=== PATIENT | female | born 1955 | race Caucasian/White ===

== ENCOUNTER 2016-07-08 15:56 | Outpatient (RCR) | payer BC ==
--- OUTSIDE RECORDS SUMMARY | 2016-05-28 09:24 | XMS REPORT | Continuity of Care Document ---
Author Author [facility] Organization [facility] Address Unknown Phone Unavailable Care Team Providers Care Drafter Directional Survey Name Role Phone TOÑO DYER MD PCP Insurance Providers Payer Name Policy Number Subscriber Name Relationship [facility] [id number] Allison Pérez 01 Advance Directives Directive Response Recorded Date/Time Advance Directives No 01/26/12 1:23pm Organ Donor Yes 01/26/12 1:23pm Problems No known problems or medical conditions. Medications Medication Dose Route Sig Days/Qty Instructions Order Date Discontinued Date Status Paroxetine HCl 20 Mg PO DAILY pt.states takes paxil 20 mg about 3 x's a week. 12/16/10 Active Metoprolol Succinate 25 Mg PO DAILY 12/18/10 Active Enalapril Maleate 2.5 Mg PO DAILY 12/18/10 01/26/12 Discontinued Pantoprazole Sod 40 Mg PO DAILY 12/18/10 Active Aspirin 325 Mg PO DAILY 12/18/10 01/26/12 Discontinued Prasugrel Hydrochloride 10 Mg PO DAILY 12/18/10 Active Atorvastatin Calcium 80 Mg PO BEDTIME 12/18/10 Active Fish Oil 3,000 Mg PO DAILY 12/18/10 Active Aspirin 81 Mg PO DAILY 01/25/12 Active Social History Social History Problem Response Recorded Date/Time Recent Foreign Travel No 05/29/2014 9:12am Hospital Discharge Instructions No hospital discharge instructions. Plan of Care No plan of care. Functional Status No functional status results. Allergies, Adverse Reactions, Alerts Allergen Type Severity Reaction Status Last Updated No Known Drug Allergies Active 12/16/10 Immunizations No immunization records. Vital Signs No known vital signs results. Results No known relevant diagnostic tests, laboratory data and/or discharge summary. Procedures No known history of procedures. Encounters Encounter Location Date/Time Registered Clinic [facility] 05/29/14 9:12pm
[~2016-07-08 15:56] MED LIST: ACHYD1T PO; ASP325TEC PO; ASP81TEC PO; ASPI-892 PO; ATOR20TA66 PO; ATOR80TA PO; ENAL2.5T PO; HYDR-753 PO; IRON150C6 PO; MTP25TSR PO; MULT-35 PO; NEXIUM 22.3 MG PO; NF-ESOM40C PO; OMEP20CA12 PO; OMG1KC PO; ONDN4T PO; PARO10TA81 PO; PNT40TEC PO; PRAS10TA6 PO; PRX20T PO; WARF2.5T56 PO
== END 2016-07-22 10:07 | disposition home or self-care (01) ==
PROVIDERS: ATTEND Nurse Practitioner Family
DX: M75.02 Adhesive capsulitis of left shoulder (principal)

== ENCOUNTER 2017-06-17 15:05 | Outpatient (RCR) | payer BC ==
[2017-06-07] MEDS: IRON SUCROSE 200 MG/NS 100 ML (IVPB) IV SCH ×2 (14:56)
[2017-06-07 14:59] VITALS: BP 130/68
[2017-06-07 15:14] VITALS: BP 130/68
[2017-06-09] MEDS: IRON SUCROSE 200 MG/NS 100 ML (IVPB) IV SCH ×2 (15:12)
[2017-06-09 16:18] VITALS: BP 131/67
[2017-06-13 15:00] VITALS: BP 127/76
[2017-06-13] MEDS: IRON SUCROSE 200 MG/NS 100 ML (IVPB) IV SCH ×2 (15:05)
[2017-06-15 14:55] VITALS: BP 137/71
[2017-06-15] MEDS: IRON SUCROSE 200 MG/NS 100 ML (IVPB) IV SCH ×2 (15:05)
[~2017-06-17] VITALS: Ht 162.6 cm; Wt 79.5 kg
[2017-06-17] MEDS: IRON SUCROSE 200 MG/NS 100 ML (IVPB) IV SCH ×2 (15:20)
[2017-06-17 15:27] VITALS: BP 127/68
[2017-06-17 15:37] VITALS: BP 127/68
== END 2017-09-04 | disposition home or self-care (01) ==
LOC: SDC 15:05
PROVIDERS: ATTEND Internal Medicine
DX: D50.9 Iron deficiency anemia, unspecified (principal)
CPT/HCPCS: 96365

== ENCOUNTER → 2017-07-20 | Outpatient (CLI) | payer BC | LOC: CARD 14:03 | PROVIDERS: ATTEND Internal Medicine Cardiovascular Disease | DX: I25.10 Atherosclerotic heart disease of native coronary artery without angina pectoris (principal); I10 Essential (primary) hypertension; E78.2 Mixed hyperlipidemia; R06.02 Shortness of breath | CPT/HCPCS: 93306 ==

== ENCOUNTER → 2017-07-25 | Outpatient (CLI) | payer BC ==
[~2017-07-25] VITALS: Ht 162.6 cm; Wt 81.6 kg
[~2017-07-25] MED LIST changes: +CATHETER FLUSH 10 ML SYR IV PRN
[2017-07-25 09:36] VITALS: BP 123/76
--- NOTE | 2017-07-25 15:58 | STRESS TEST ---
DATE OF SERVICE: 07/25/2017 EXERCISE MYOVIEW STRESS TEST REPORT Baseline heart rate is 57. Baseline blood pressure 135/76. Baseline EKG is sinus rhythm with no ischemic changes. In summary, the patient was injected with 10.69 mCi of technetium-99 Myoview and the resting images were obtained. Then, the patient started exercising with a baseline heart rate, blood pressure and EKG mentioned above. At peak stress level, patient was injected with 33.0 mCi of technetium-99 Myoview, was able to exercise for a total of 8 minutes on standard Ethan protocol EKG showing minimal nondiagnostic changes with [address] depression in lead [address] depression in V4 and V5. Blood pressure was 162/80. During recovery, heart rate and blood pressure returned to baseline. EKG returned to baseline. The resting and stress images were reviewed and compared in the short axis, horizontal long axis, and vertical long axis views. Review of the images showed good radiotracer uptake with no significant ischemia or infarction. SSS is 1, SDS 1, TID value 0.89. On the gated images, the left ventricle appeared to be normal size with normal contractility. Calculated ejection fraction 68%. CONCLUSION: 1. Good exercise tolerance a total of 8 minutes on standard Ethan protocol, total of 9.7 METS achieving 90% of maximum expected heart rate. 2. Appropriate heart rate and blood pressure response to exercise returned to baseline during recovery. 3. Minimal nondiagnostic EKG changes with exercise returned to baseline during recovery. 4. No significant ischemia or infarction on SPECT images. 5. Normal left ventricular size with normal contractility. Calculated ejection fraction 68%. Job ID: [id number] DocumentID: [id number] Dictated Date: 07/25/2017 12:37:18 Desulfurizer Hand Date: 07/25/2017 15:57:47 Dictated By: BARRETT GUTIÉRREZ MD
== END ==
LOC: CARD 08:01
PROVIDERS: ATTEND Internal Medicine Cardiovascular Disease
DX: I25.10 Atherosclerotic heart disease of native coronary artery without angina pectoris (principal); I10 Essential (primary) hypertension; E78.2 Mixed hyperlipidemia; R06.02 Shortness of breath
CPT/HCPCS: 78452; 93017

== ENCOUNTER → 2018-06-08 | Outpatient (CLI) | payer BC ==
[~2018-06-08] MED LIST changes: -CATHETER FLUSH 10 ML SYR IV PRN; +HYDR-4196 PO; -HYDR-753 PO
--- NOTE | 2018-06-08 18:14 | Diagnostic Imaging Report ---
INDICATION: Screening. The current study was also evaluated with a Computer Aided Detection (CAD) system. No prior examinations are available for comparison. FINDINGS: There are scattered fibroglandular densities bilaterally. There are few benign type calcifications. There are benign-appearing nodular densities in the axilla bilaterally. There is no dominant mass, spiculated lesion or suspicious calcification identified. Skin nipples and axilla are unremarkable. IMPRESSION: Benign. ACR BI-RADS Category 2: Benign findings. Result letter will be mailed to the patient. Note: At least 10% of breast cancer is not imaged by mammography. Dictated by: Dictated on workstation # [id number]
== END ==
LOC: RAD 09:47
PROVIDERS: ATTEND Internal Medicine
DX: Z12.31 Encounter for screening mammogram for malignant neoplasm of breast (principal)
CPT/HCPCS: 77067

== ENCOUNTER 2018-12-07 05:41 | Outpatient (CLI) | payer BC ==
[~2018-12-07] VITALS: Ht 162.6 cm; Wt 81.6 kg
[2018-12-07] MEDS ORDERED: MULT-351 PO (14:33)
[2018-12-07] MEDS ORDERED: ATOR40TA70 PO (14:33)
[2018-12-07] MEDS ORDERED: METO-387 PO (14:33)
== END 2018-12-07 14:50 ==
LOC: PREOP 05:41
PROVIDERS: ATTEND Surgery
DX: Z01.818 Encounter for other preprocedural examination (principal)

== ENCOUNTER 2018-12-11 10:16 | Day surgery (SDC) | payer BC ==
[~2018-12-11] VITALS: Ht 162.6 cm; Wt 81.6 kg
[~2018-12-11 10:16] MED LIST changes: +ATOR40TA70 PO; +LACTATED RINGERS 1,000 ML IV ONE; +METO-387 PO; +MULT-351 PO
[2018-12-11] MEDS ORDERED: HURRICAINE EXT TUBE (BENZOCAINE) ONE (10:32)
[2018-12-11] MEDS ORDERED: PROPOFOL INJECTION 50 ML IV ONE (10:40)
[2018-12-11] MEDS ORDERED: MIDAZOLAM 2 MG/2 ML (VERSED) VIAL ONE (10:41)
--- NOTE | 2018-12-11 10:42 | Progress Note-Pre Operative ---
Pre-Operative Progress Note H&P Reviewed The H&P was reviewed, patient examined and no changes noted. Time Seen by Provider: 10:40 Date H&P Reviewed: Dec 11, 2018 Time H&P Reviewed: 10:41 Pre-Operative Diagnosis: Chronic Gastritis, Anemia, Family hx colon ca, Scr eening MAIRA Richter DO Dec 11, 2018 10:42
[2018-12-11] MEDS ORDERED: LACTATED RINGERS 1,000 ML IV STA (10:46)
[2018-12-11 10:55] VITALS: BP 123/72
[2018-12-11] MEDS ORDERED: ceFAZolin 2 GM/50 ML NS 50 ML IV ONE (11:00)
[2018-12-11] MEDS ORDERED: HURRICAINE EXT TUBE (BENZOCAINE) XX PRN (11:00)
[2018-12-11] MEDS ORDERED: proPOfol 200 MG/20 ML (DIPRIVAN) VIAL IV ONE (11:17)
--- NOTE | 2018-12-11 11:44 | Progress Note-Post Operative ---
Post-Operative Progess Note Surgeon (s)/Laborer Powerhouse (s) Surgeon MAIRA LOUIE DO Laborer Powerhouse: none Pre-Operative Diagnosis Chronic Gastritis, Anemia, Family hx colon ca, Screening colon Post-Operative Diagnosis Chronic Gastritis Gastric Polyps Hiatal hernia Esophagitis Sigmoid colon polyp internal hemorrhoids Procedure & Operative Findings Date of Procedure 12/11/18 Procedure Performed/Findings EGD with snare polypectomy EGD with bx Colon with hot bx Anesthesia Type IV sedation by CHOKER SETTER Estimated Blood Loss Estimated blood loss (mL): scant Specimens/Packing Specimens Removed antral bx Gastric polyp GE jxn bx Sigmoid colon polyp MAIRA LOUIE DO Dec 11, 2018 11:44
--- NOTE | 2018-12-11 11:46 | Endoscopy Discharge Instruct ---
Endo Procedure/Findings Findings 1.: Gastritis, Other Findings (Gastric polyps-inflamed) 2.: Hiatal Hernia 3.: Polyp 4.: Internal Hemorrhoids Discharge Instructions - Activity: You might feel a little sleepy until tomorrow. This is due to the medicine you received to relax you. Until tomorrow, you should: NOT drive a car, operate machinery or power tools. NOT drink any alcoholic beverages. NOT make any important decisions or sign importortant papers. Do not return to work until tomorrow, unless otherwise instructed. Resume previous activities tomorrow. Diet: Start by taking liquids. If you tolerate liquids, advance to solid food. make an appointment for one week Instructions: 1.: Colonscopy in 5 years, EGD in 1 year Notify Physician - If you experience excessive bleeding, unusual abdominal pain, fever, or chest pain, contact your doctor immediately. Follow-Up: - I have received and understand the above instructions and will call my doctor if I have any further questions. Patient Signature Date Nurse Signature Other (Relationship) MAIRA LOUIE DO Dec 11, 2018 11:46
[2018-12-11 11:50] VITALS: BP 130/67
[2018-12-11 12:25] VITALS: BP 128/76
[2018-12-11 12:34] VITALS: BP 128/76
--- NOTE | 2018-12-11 14:47 | Anesthesia-General Post-Op ---
MAC Patient Condition Mental Status/LOC: Same as Preop Cardiovascular: Satisfactory Nausea/Vomiting: Absent Respiratory: Satisfactory Pain: Controlled Complications: Absent Post Op Complications Complications None Follow Up Care/Instructions Patient Instructions None needed. Anesthesiology Discharge Order Discharge Order Patient is doing well, no complaints, stable vital signs, no apparent adverse anesthesia problems. No complications reported per nursing. TASIA CAMPUZANO CRNA Dec 11, 2018 14:47
--- NOTE | 2018-12-11 20:53 | OPERATIVE REPORT ---
DATE OF SERVICE: 12/11/2018 PREOPERATIVE DIAGNOSES: 1. Chronic gastritis. 2. Anemia. 3. Family history of colon cancer. 4. Screening colonoscopy. POSTOPERATIVE DIAGNOSES: 1. Chronic gastritis. 2. Gastric polyps. 3. Hiatal hernia. 4. Esophagitis. 5. Sigmoid colon polyp. 6. Internal hemorrhoids. PROCEDURES PERFORMED: 1. Esophagogastroduodenoscopy with snare polypectomy. 2. Esophagogastroduodenoscopy with biopsy. 3. Colonoscopy with hot biopsy. SURGEON: Abdoulaye Lemon DO. STREET INSPECTOR: None. ANESTHESIA: IV sedation by TONE REGULATOR. SPECIMENS: 1. Antral biopsy and then 2 gastric polyps. 2. GE junction biopsy. 3. Sigmoid colon polyp taken in 2 pieces. BLOOD LOSS: Scant. FLUIDS: Per Anesthesia. POSTOPERATIVE CONDITION: Stable. INDICATION FOR PROCEDURE: The patient is a 63-year-old female, who has been having some chronic gastritis and anemia, had a family history of colon cancer. Never had a colonoscopy and needs one for screening. FINDINGS: The patient had some chronic gastritis. She also had multiple large gastric polyps. Two of them looked inflamed. These were removed. She also had noted a hiatal hernia and some mild esophagitis. In the colon, she had a sigmoid colon polyp and some internal hemorrhoids. PROCEDURE NOTE: After informed consent was obtained, the patient was brought to the endoscopy suite and placed in the left lateral decubitus position. She was administered IV sedation by the TONE REGULATOR, who then monitored her vitals the entire time, heart rate, blood pressure and pulse ox and the scope was inserted down the mouth through the esophagus into the stomach. Upon entering the stomach, there was some gastritis, I took a picture of this, pushed in the duodenum, first and second portion of duodenum looked fine. Pulled back into the antrum, did a biopsy of the antrum and then looking in the body of stomach, saw a large amount of gastric polyps. Two of them were very large and inflamed, elected to remove these with snare polypectomies and did a snare polypectomy. I pulled back into the GE junction, did a biopsy of the GE junction and then put the scope back in. I used a [place] Net to grasp the 2 polyps and then pulled the scope up the esophagus and out the mouth after suctioning out the air in the stomach. Switched gloves and switched cameras and went down below to start the colonoscopy. I pushed the scope in, pushed all the way to 140 cm, able to get to the cecum and noted the appendiceal orifice as well as the ileocecal valve and then slowly withdrew the scope insufflating to look circumferentially at the mart looking at the cecum, up the ascending colon to the hepatic flexure, then down the transverse colon, splenic flexure, into the descending colon and down the sigmoid. In the sigmoid, saw a polyp, took a picture of this and then did a hot biopsy and able to remove it completely in 2 bites and then pulled down into the rectum, retroflexed in the rectal vault, saw some minimal internal hemorrhoids, took a picture of this and then removed the scope. The patient tolerated the procedure and she was recovered in endoscopy suite. Job ID: [id number] DocumentID: [id number] Dictated Date: 12/11/2018 14:53:46 Rivet Hammer Machine Operator Date: 12/11/2018 20:53:11 Dictated By: ABDOULAYE LEMON DO
== END 2018-12-11 12:30 | disposition home or self-care (01) ==
LOC: ENDO 10:16
PROVIDERS: ATTEND Surgery
DX: Z12.11 Encounter for screening for malignant neoplasm of colon (principal); K29.50 Unspecified chronic gastritis without bleeding; K31.7 Polyp of stomach and duodenum; K44.9 Diaphragmatic hernia without obstruction or gangrene; K21.0 Gastro-esophageal reflux disease with esophagitis; K63.5 Polyp of colon; K64.8 Other hemorrhoids; D64.9 Anemia, unspecified; Z80.0 Family history of malignant neoplasm of digestive organs; Z82.49 Family history of ischemic heart disease and other diseases of the circulatory system; I10 Essential (primary) hypertension; E78.2 Mixed hyperlipidemia; I25.10 Atherosclerotic heart disease of native coronary artery without angina pectoris; F41.9 Anxiety disorder, unspecified; I65.23 Occlusion and stenosis of bilateral carotid arteries; Z95.5 Presence of coronary angioplasty implant and graft; Z79.899 Other long term (current) drug therapy; Z96.651 Presence of right artificial knee joint

== ENCOUNTER 2019-05-18 11:38 | Outpatient (RCR) | payer BC ==
[2019-05-07 10:10] VITALS: BP 129/54
[2019-05-07] MEDS: IRON SUCROSE 200 MG/10 ML (VENOFER) VIAL IV SCH (10:30)
[2019-05-11] MEDS: IRON SUCROSE 200 MG/10 ML (VENOFER) VIAL IV SCH ×2 (11:10→11:11)
[2019-05-11 11:16] VITALS: BP 131/76
[2019-05-14 11:18] VITALS: BP 120/59
[2019-05-14] MEDS: IRON SUCROSE 200 MG/10 ML (VENOFER) VIAL IV SCH (11:31)
[2019-05-16 11:28] VITALS: BP 142/77
[2019-05-16] MEDS: IRON SUCROSE 200 MG/10 ML (VENOFER) VIAL IV SCH (11:43)
[~2019-05-18] VITALS: Ht 162.6 cm; Wt 79.5 kg
[~2019-05-18 11:38] MED LIST changes: +IRON SUCROSE 200 MG/10 ML (VENOFER) VIAL IV ONE; -LACTATED RINGERS 1,000 ML IV ONE; +OMEP20CA13 PO
[2019-05-18] MEDS: IRON SUCROSE 200 MG/10 ML (VENOFER) VIAL IV SCH (11:52)
[2019-05-18 13:51] VITALS: BP 128/73
== END 2019-05-18 12:24 | disposition home or self-care (01) ==
LOC: SDC 11:38
PROVIDERS: ATTEND Internal Medicine
DX: D50.9 Iron deficiency anemia, unspecified (principal)
CPT/HCPCS: 96365

== ENCOUNTER → 2020-02-27 | Outpatient (CLI) | payer MEDICARE, OTHER ==
[~2020-02-27] VITALS: Ht 162 cm; Wt 77.0 kg
[~2020-02-27] MED LIST changes: +CATHETER FLUSH 10 ML SYR IV PRN; -IRON SUCROSE 200 MG/10 ML (VENOFER) VIAL IV ONE; -METO-387 PO; -OMEP20CA13 PO; +OMEP20CA18 PO; +REGADENOSON 0.4 MG/5 ML SYR (LEXISCAN) IV ONE
[2020-02-27 09:24] VITALS: BP 127/77
--- NOTE | 2020-02-27 13:12 | Cardiology Stress Test Report ---
Stress Test Report Date of Procedure/Referring: Date of Procedure: Feb 27, 2020 PCP Barrett Peralta MD Admitting Physician Sivan Whittington DO Indications: Coronary artery disease Baseline Heart Rate: 51 Baseline Blood Pressure: Blood Pressure Systolic: 127 Blood Pressure Diastolic: 77 Baseline Vitals Vital Signs Date Time Temp Pulse Resp B/P (MAP) Pulse Ox O2 Delivery O2 Flow Rate FiO2 02/27/20 09:24 51 127/77 (94) 98 Baseline EKG: Baseline EKG: normal sinus rhythm Summary After explaining the procedure to the patient, she signed a consent and then brought to the stress nuclear laboratory. Patient received 0.4 mg Lexiscan for stress test, ECG, heart rate and blood pressure were monitored continuously. Resting and stress dose of radio tracer were injected, imaging was acquired and reviewed in short axis, horizontal long axis and vertical long axis views. TID: 1.06 SSS: 2 SDS: 2 EF: 65 1. Patient tolerated Lexiscan well 2. Breast attenuation with mild decrease uptake at the anteroapical segment with mild reversibility, no significant ischemia or infarction on SPECT images 3. Normal LV size, EF 65 percent BARRETT PERALTA MD Feb 27, 2020 13:12
== END ==
LOC: CARD 07:47
PROVIDERS: ATTEND Internal Medicine Cardiovascular Disease
DX: I11.9 Hypertensive heart disease without heart failure (principal); I25.10 Atherosclerotic heart disease of native coronary artery without angina pectoris; K21.9 Gastro-esophageal reflux disease without esophagitis; E78.2 Mixed hyperlipidemia; N64.89 Other specified disorders of breast
CPT/HCPCS: 78452; 93017; A9502

== ENCOUNTER 2020-08-27 09:00 | Day surgery (SDC) | payer MEDICARE, OTHER ==
[~2020-08-27] VITALS: Ht 162 cm; Wt 78.0 kg
[2020-08-27] VITALS (11 sets, daily range): BP systolic 112–141; BP diastolic 63–81
[2020-08-27] MEDS: NS IV 1000 ML 1,000 ML IV SCH ×2 (07:19→15:26)
--- NOTE | 2020-08-27 07:19 | Cardiac Procedure Note-CS/ASA ---
Pre-Procedure Note Pre-Op Procedure Note H&P Reviewed The H&P was reviewed, patient examined and no changes noted. Date H&P Reviewed: Aug 27, 2020 Time H&P Reviewed: 07:19 Conscious Sedation Pre-Proced Time 07:19 ASA Score 3 For ASA 3 and 4: Consider anesthesia and medical clearance. Also, for patients with a history of failed moderate sedation consider anesthesia. Airway Lungs Heart ASA score ASA 1: a normal healthy patient ASA 2: a patient with a mild systemic disease (mid diabetes, controlled hypertension, obesity x ASA 3: a patient with a severe systemic disease that limits activity (angina, COPD, prior Myocardial infarction) ASA 4: a patient with an incapacitating disease that is a constant threat to life (CHF, renal failure) ASA 5: a moribund patient not expected to survive 24 hrs. (ruptured aneurysm) ASA 6: a declared brain- patient whose organs are being harvested. For emergent operations, add the letter E after the classification Mallampati Classification Grade 3 Sedation Plan Analgesia, Amnesia, Plan communicated to team members, Discussed options with patient/fam, Discussed risks with patient/fam The patient is an appropriate candidate to undergo the planned procedure, sedation, and anesthesia. The patient immediately re-assessed prior to indication. BARRETT GUTIÉRREZ MD Aug 27, 2020 7:19 am
[2020-08-27 07:26] LABS: BILIRUBIN,URINE NEGATIVE (NEGATIVE); CLARITY,URINE SL CLOUDY; COLOR,URINE YELLOW; GLUCOSE, URINE (UA) NEGATIVE (NEGATIVE); KETONES,URINE NEGATIVE (NEGATIVE); LEUKOCYTE ESTERASE ,URINE TRACE (NEGATIVE); NITRITE,URINE NEGATIVE (NEGATIVE); PROTEIN,URINE NEGATIVE (NEGATIVE)
[2020-08-27 07:27] LABS: HEMOGLOBIN 10.6 g/dL (11.5-16.0); MEAN PLATELET VOLUME 9.5 fL (9.0-12.2); WHITE BLOOD COUNT 4.9 10^3/uL (4.3-11.0)
--- NOTE | 2020-08-27 07:31 | Diagnostic Imaging Report ---
CHEST 1 VIEW, AP/PA ONLY Indication: Coronary artery disease, abnormal stress test. Comparison: 08/27/2014 Findings: No focal airspace disease in the visualized lungs. Please note that the posterior lower lobes are poorly evaluated by portable radiography. No pleural effusion or pneumothorax. Normal cardiomediastinal silhouette. Impression: 1. No acute cardiopulmonary process by portable radiography. Dictated by: Dictated on workstation # [id number]
[2020-08-27 07:39] LABS: BACTERIA,URINE TRACE /HPF; RBC,URINE RARE /HPF; SQUAMOUS EPITHELIAL CELL,UR RARE /HPF
[2020-08-27 07:56] LABS: ALBUMIN 4.1 GM/DL (3.2-4.5)
[2020-08-27 07:57] LABS: CALCIUM 8.9 MG/DL (8.5-10.1)
[2020-08-27 07:58] LABS: TOTAL PROTEIN 7.5 GM/DL (6.4-8.2)
[2020-08-27 08:00] LABS: BILIRUBIN,TOTAL 0.4 MG/DL (0.1-1.0)
[2020-08-27 08:02] LABS: CREATININE SERUM 1.1 MG/DL (0.60-1.30)
[2020-08-27 08:03] LABS: PROTHROMBIN TIME PATIENT 13.1 SEC (12.2-14.7)
[~2020-08-27 09:00] MED LIST changes: +ASPI-999 PO; -CATHETER FLUSH 10 ML SYR IV PRN; +HEParin (CATH LAB) 2,000 ML IV ONE; +LIDOCAINE 1% INJ 20 ML 20 ML VIAL ONE; +MIDAZOLAM 5 MG/5 ML (VERSED) VIAL ONE; +NS IV 1000 ML 1,000 ML IV SCH; +NS IV 1000 ML 1,000 ML ONE; +PANT40TA52 PO; -REGADENOSON 0.4 MG/5 ML SYR (LEXISCAN) IV ONE; +SODI51CR7 DT; +fentaNYL INJECTION 100 MCG/2 ML AMP ONE
[2020-08-27] MEDS ORDERED: HEParin 1000 UNIT/ML (10ML VIAL) FOR BOLUS ONE (09:03)
[2020-08-27] MEDS ORDERED: NITRO DRIP 25000 MCG/D5W 250 ML IV ONE (09:03)
[2020-08-27] MEDS ORDERED: ASPIRIN 325 MG (5 GR) TABLET ONE (09:15)
[2020-08-27] MEDS ORDERED: TICAGRELOR 90 MG TABLET (BRILINTA) PO ONE (09:15)
[2020-08-27] MEDS ORDERED: NS IV 1000 ML 1,000 ML IV SCH (09:30)
[2020-08-27] MEDS ORDERED: PATIENT MAY USE OWN MEDS, ALL PO SCH (09:30)
--- NOTE | 2020-08-27 09:30 | Cardiac Cath Report ---
Cardiac Cath Report Physician (s)/Commissions Specialist (s) Physician BARRETT GUTIÉRREZ MD Pre-Procedure Diagnosis Pre-Procedure Diagnosis: coronary artery disease Post-Procedure Note Procedure Start Date: Aug 27, 2020 Name of Procedure: Left heart catheterization Stent to the LAD Findings/Procedure Note PROCEDURE NOTE: 65-year-old lady with history of coronary artery disease, multiple stents in the past, had an abnormal stress test scheduled for cardiac catheterization possible PTCA. After explaining the procedure to the patient, all pros and cons were explained, all questions were answered. The patient signed the consent and then she was placed on the cardiac catheterization laboratory. Groin was prepped SL fashion local anesthesia was used. Sheath placed in the right femoral artery. Anthony right and left catheter were used to access the coronary system. Anthony right was prolapsed of the left ventricular cavity, pressure was measured no left ventricular gram was done, pullback LV to aorta was done. Percutaneous intervention note Patient has severe stenosis in the distal LAD, 5000 units of heparin were given, EBU 3.5 guide was advanced to the left coronary system, BMW wire was advanced and parked distally. Primary stenting using 2.25 x 28 mm Sully drug-eluting stent deployed under 12 anam to 2.42 mm with excellent results. At the end of the procedure the sheath was removed. Closure device deployed FINDINGS: Hemodynamics LV 124/12, end-diastolic pressure of 12 Aorta 133/61 mean of 83 ANATOMY: Left Main is free of obstructive disease Left Anterior Descending has patent stent proximally, severe stenosis distally, successful primary stenting using Sully 2.25 x 28 mm expanded to 2.42 mm with excellent results Left Circumflex has patent stent with mild disease nonobstructive disease Right Coronory Artery is small to moderate in size with no obstructive disease LV Gram was not done, pressure was measured CONCLUSION: 1. Severe distal LAD stenosis successful primary stenting using 2.25 x 28 mm Sully stent expanded to 2.42 mm with excellent results 2. Patent stent in the proximal LAD and in the circumflex artery with nonobstructive disease 3. Small to moderate size right coronary artery with nonobstructive disease DISCUSSION AND RECOMMENDATION: Patient was started on aspirin and Brilinta, I added Zetia due to elevated LDL, continue to maximize medical therapy Anesthesia Type: Conscious Sedation Estimated blood loss (mL): 25 ml Contrast Amount: 93 ml Total Radiation Dose: 333 mGy Post-Procedure Diagnosis Post-operative diagnosis: Coronary artery disease Hypertension Hyperlipidemia Chest pain BARRETT GUTIÉRREZ MD Aug 27, 2020 09:30
[2020-08-27] MEDS ORDERED: TICA90TA PO (18:00)
[2020-08-27] MEDS ORDERED: EZET10TA49 PO (18:00)
--- NOTE | 2020-08-27 18:00 | Discharge Inst-Post CATH ---
Discharge Inst-CATH/EP Problems Reviewed?: Yes Post Cardiac Cath/EP D/C Inst Follow Up/Plan Appointment with Dr Peralta in 2-4 weeks <b>CARDIAC CATH/EP PROCEDURE DISCHARGE INSTRUCTIONS</b> ACTIVITY * Go Home directly and rest. * Limit activity of the leg (or wrist if it was used) for 7 days including aerobics, swimming, jogging, bicycling, etc. * Restrict stair-climbing for 7 days if possible, if not, climb up with your non-cath leg, then bring together on the same step. * Avoid lifting, pushing, pulling or excessive movement of the affected extremity for 7 days. * Customary sexual activity may be resumed after 2 days-use caution not to use a position that strains or causes pain to the affected extremity. * No driving for 24 hours. * NO SMOKING. * Avoid straining for bowel movements for 7 days. * Gentle walking on level ground is allowed. * Returning to work will depend on the type of procedure and the results. Your doctor will discuss this with you. CALL YOUR DOCTOR FOR ANY OF THE FOLLOWING: *If bleeding from the puncture site occurs- Apply gentle pressure to site with clean cloth and call your doctor or EMS. * If a knot or lump forms under the skin, increases in size, or causes pain. * If bruising appears to be worsening or moving further down your leg instead of disappearing. * Temperature above 101 F. CARE OF YOUR GROIN INCISION; * Bruising or purple discoloration of the skin near the puncture site is common. * You may shower only, no bathtub bathing for 5 days. Be careful to avoid slipping as your leg may feel stiff. * If a closure device was used on your femoral artery, please see the attached guide regarding care of the device and your leg. * Leave dressing on FOR 24 hours. CARE OF YOUR WRIST INCISION; * Bruising or purple discoloration of the skin near the puncture site is common. * You may shower. * DO NOT submerge wrist. * Leave dressing on FOR 24 hours. BARRETT PERALTA MD Aug 27, 2020 18:00
[2020-08-27] MEDS ORDERED: eZETimibe 10 MG (ZETIA) TABLET PO SCH (21:00)
[2020-08-27] MEDS ORDERED: TICAGRELOR 90 MG TABLET (BRILINTA) PO SCH (21:00)
[2020-08-28] MEDS ORDERED: PANTOPRAZOLE 40 MG (PROTONIX) TAB PO SCH (09:00)
[2020-08-28] MEDS ORDERED: PARoxetine 10 MG (PAXIL) TAB PO SCH (09:00)
[2020-08-28] MEDS ORDERED: PARoxetine 20 MG (PAXIL) TAB PO SCH (09:00)
[2020-08-28] MEDS ORDERED: ASPIRIN E.C. 81 MG (ECOTRIN) TAB PO SCH (09:00)
== END 2020-08-27 17:59 | disposition home or self-care (01) ==
LOC: CATH 09:00 → CSD 09:45 → CATH 17:59 → CSD 08-28 21:18
PROVIDERS: ATTEND Internal Medicine Cardiovascular Disease
DX: I25.10 Atherosclerotic heart disease of native coronary artery without angina pectoris (principal); E78.2 Mixed hyperlipidemia; I10 Essential (primary) hypertension; E66.9 Obesity, unspecified; K21.9 Gastro-esophageal reflux disease without esophagitis; G47.39 Other sleep apnea; I65.23 Occlusion and stenosis of bilateral carotid arteries; Z95.5 Presence of coronary angioplasty implant and graft; Z68.29 Body mass index [BMI] 29.0-29.9, adult; Z79.82 Long term (current) use of aspirin; Z79.899 Other long term (current) drug therapy
CPT/HCPCS: 71045; 80053; 80061; 81000; 85027; 85347; 85610; 85730; 87081; 93458; C1760; C1769; C1874; C1887; C1894; C9600; 36415

== ENCOUNTER → 2021-01-02 | Outpatient (CLI) | payer MEDICARE, OTHER ==
[~2021-01-02] MED LIST changes: +EZET10TA49 PO; -HEParin (CATH LAB) 2,000 ML IV ONE; -LIDOCAINE 1% INJ 20 ML 20 ML VIAL ONE; -MIDAZOLAM 5 MG/5 ML (VERSED) VIAL ONE; -NS IV 1000 ML 1,000 ML IV SCH; -NS IV 1000 ML 1,000 ML ONE; +TICA90TA PO; -fentaNYL INJECTION 100 MCG/2 ML AMP ONE
--- NOTE | 2021-01-02 12:38 | Diagnostic Imaging Report ---
INDICATION: Routine screening. COMPARISON is made with prior mammograms 06/08/2018 and 12/09/2010. 2-D and 3-D bilateral screening mammography was performed with CAD. Scattered fibroglandular densities are identified bilaterally. The parenchymal pattern is stable. No spiculated mass or malignant-appearing microcalcifications are seen. Axillae are unremarkable. IMPRESSION: BI-RADS Category 1 No mammographic features suspicious for malignancy are identified. ACR BI-RADS Category 1: Negative. Result letter will be mailed to the patient. Note: At least 10% of breast cancer is not imaged by mammography. Dictated by: Dictated on workstation # [id number]
== END ==
LOC: RAD 11:15
PROVIDERS: ATTEND Internal Medicine
DX: Z12.31 Encounter for screening mammogram for malignant neoplasm of breast (principal)
CPT/HCPCS: 77063; 77067

== ENCOUNTER 2021-01-21 12:24 | Outpatient (RCR) | payer MEDICARE, OTHER ==
[2021-01-12 12:33] VITALS: BP 137/85
[2021-01-12] MEDS: IRON SUCROSE 200 MG/10 ML (VENOFER) VIAL IV SCH (12:42)
[2021-01-14] MEDS: IRON SUCROSE 200 MG/10 ML (VENOFER) VIAL IV SCH (12:41)
[2021-01-14 12:43] VITALS: BP 110/70
[2021-01-16] MEDS: IRON SUCROSE 200 MG/10 ML (VENOFER) VIAL IV SCH (13:02)
[2021-01-16 13:05] VITALS: BP 122/81
[2021-01-19] MEDS: IRON SUCROSE 200 MG/10 ML (VENOFER) VIAL IV SCH (12:54)
[2021-01-19 13:25] VITALS: BP 128/69
[2021-01-21 12:20] VITALS: BP 119/71
[2021-01-21] MEDS: IRON SUCROSE 200 MG/10 ML (VENOFER) VIAL IV SCH (12:37)
== END 2021-01-21 13:50 | disposition home or self-care (01) ==
LOC: SDC 12:24
PROVIDERS: ATTEND Internal Medicine
DX: E61.1 Iron deficiency (principal)
CPT/HCPCS: 96360; 96365

== ENCOUNTER → 2021-04-24 | Outpatient (CLI) | payer MEDICARE, OTHER | LOC: CARD 13:00 | PROVIDERS: ATTEND Internal Medicine Cardiovascular Disease | DX: I34.0 Nonrheumatic mitral (valve) insufficiency (principal); I11.9 Hypertensive heart disease without heart failure | CPT/HCPCS: 93306 ==

== ENCOUNTER → 2021-05-29 | Outpatient (CLI) | payer MEDICARE, OTHER | LOC: LABNPT 06:43 | PROVIDERS: ATTEND Orthopaedic Surgery | DX: Z20.822 Contact with and (suspected) exposure to COVID-19 (principal) | CPT/HCPCS: 87635 ==

== ENCOUNTER 2021-06-24 15:27 | Outpatient (RCR) | payer MEDICARE, OTHER | END 2021-06-26 | disposition home or self-care (01) | PROVIDERS: ATTEND Orthopaedic Surgery | DX: M25.562 Pain in left knee (principal); I10 Essential (primary) hypertension; Z96.652 Presence of left artificial knee joint ==

== ENCOUNTER 2021-07-15 11:00 | Outpatient (RCR) | payer MEDICARE, OTHER | END 2021-07-27 | disposition home or self-care (01) | PROVIDERS: ATTEND Orthopaedic Surgery | DX: R26.9 Unspecified abnormalities of gait and mobility (principal); I10 Essential (primary) hypertension; Z96.652 Presence of left artificial knee joint ==

== ENCOUNTER → 2022-01-26 | Outpatient (CLI) | payer MEDICARE, OTHER ==
--- NOTE | 2022-01-26 18:02 | Diagnostic Imaging Report ---
Indication: Routine screening. Comparison is made with prior mammograms from 01/02/2021 and 06/08/2018. 2-D and 3-D bilateral screening mammography was performed with CAD. Scattered fibroglandular densities are identified bilaterally. The parenchymal pattern is stable. No mass or malignant-appearing microcalcifications are seen. Axillae are unremarkable. IMPRESSION: BI-RADS Category 1 No mammographic features suspicious for malignancy are identified. ACR BI-RADS Category 1: Negative. Result letter will be mailed to the patient. Note: At least 10% of breast cancer is not imaged by mammography. Dictated by: Dictated on workstation # [id number]
== END ==
LOC: RAD 13:15
PROVIDERS: ATTEND Internal Medicine
DX: Z12.31 Encounter for screening mammogram for malignant neoplasm of breast (principal)
CPT/HCPCS: 77063; 77067

== ENCOUNTER 2022-05-25 10:06 | Outpatient (RCR) | payer MEDICARE, OTHER ==
[~2022-05-25] VITALS: Ht 162.6 cm; Wt 79.5 kg
[2022-05-25] MEDS ORDERED: IRON SUCROSE 200 MG/10 ML (VENOFER) VIAL IV SCH (10:30)
[2022-05-25 11:20] VITALS: BP 131/80
== END 2022-05-26 | disposition home or self-care (01) ==
LOC: SDC 10:06
PROVIDERS: ATTEND Internal Medicine
DX: E61.1 Iron deficiency (principal)
CPT/HCPCS: 96365

== ENCOUNTER 2022-06-04 10:09 | Outpatient (RCR) | payer MEDICARE, OTHER ==
[2022-05-27] MEDS: IRON SUCROSE 200 MG/10 ML (VENOFER) VIAL IV SCH (10:45)
[2022-05-27 10:46] VITALS: BP 121/74
[2022-05-31 10:10] VITALS: BP_SYST 121; BP_SYST 128; BP_DIAS 59; BP_DIAS 74
[2022-05-31] MEDS: IRON SUCROSE 200 MG/10 ML (VENOFER) VIAL IV SCH (10:17)
[2022-06-02 10:50] VITALS: BP 139/59
[2022-06-02] MEDS: IRON SUCROSE 200 MG/10 ML (VENOFER) VIAL IV SCH (11:41)
[~2022-06-04] VITALS: Ht 162.6 cm; Wt 79.5 kg
[2022-06-04] MEDS ORDERED: IRON SUCROSE 200 MG/10 ML (VENOFER) VIAL IV ONE (10:11)
[2022-06-04 10:20] VITALS: BP 110/63
== END 2022-06-04 11:30 | disposition home or self-care (01) ==
LOC: SDC 10:09
PROVIDERS: ATTEND Internal Medicine
DX: E61.1 Iron deficiency (principal)
CPT/HCPCS: 96365

== ENCOUNTER → 2023-01-31 | Outpatient (CLI) | payer MEDICARE, OTHER ==
[~2023-01-31] MED LIST changes: +PARO-134 PO; -PARO10TA81 PO
--- NOTE | 2023-01-31 14:42 | Diagnostic Imaging Report ---
INDICATION: Routine screening. Comparison is made with prior mammogram 01/26/2022 and 01/02/2021. 2-D and 3-D bilateral screening mammography was performed with CAD. Scattered fibroglandular densities are identified bilaterally. The parenchymal pattern is stable. No mass or malignant-appearing microcalcifications are seen. Axillae are unremarkable. There are scattered benign calcifications. IMPRESSION: No mammographic features suspicious for malignancy are identified. ACR BI-RADS Category 2: Benign findings. Result letter will be mailed to the patient. Note: At least 10% of breast cancer is not imaged by mammography. BI-RADS Category 2 Dictated by: Dictated on workstation # [id number]
== END ==
LOC: RAD 09:47
PROVIDERS: ATTEND Internal Medicine
DX: Z12.31 Encounter for screening mammogram for malignant neoplasm of breast (principal); M85.80 Other specified disorders of bone density and structure, unspecified site
CPT/HCPCS: 77063; 77067